=== PATIENT | male | born 1960 | race African-American/Black ===

== ENCOUNTER 2022-05-25 16:22 | Emergency (ER) | payer MEDICAID ==
[~2022-05-25] VITALS: Ht 170.2 cm; Wt 82.0 kg
[2022-05-25 16:25] VITALS: BP 119/78
[2022-05-25] MEDS ORDERED: ACETAMINOPHEN 325MG TABLET PO ONE (16:45)
== END 2022-05-25 16:50 | disposition home or self-care (01) ==
LOC: ER 16:22
DX: M79.10 Myalgia, unspecified site (principal); I10 Essential (primary) hypertension; F03.90 Unspecified dementia, unspecified severity, without behavioral disturbance, psychotic disturbance, mood disturbance, and anxiety
CPT/HCPCS: 99283

== ENCOUNTER 2022-05-25 19:16 | Emergency (ER) | payer MEDICAID ==
[~2022-05-25] VITALS: Ht 167.6 cm; Wt 85.3 kg
[2022-05-25 19:44] VITALS: BP 145/70
== END 2022-05-26 00:15 | disposition left against medical advice (07) ==
LOC: ER 19:16
DX: Z53.21 Procedure and treatment not carried out due to patient leaving prior to being seen by health care provider (principal)

== ENCOUNTER 2022-08-21 09:00 | Inpatient (IN) | payer MEDICAID ==
[~2022-08-21] VITALS: Ht 160 cm; Wt 80.3 kg
[2022-08-21 09:39] LABS: BASOPHILS % 0.7 % (0.0-2.0); EOSINOPHILS % 1.5 % (0.0-5.0); HEMATOCRIT. 42.4 % (42.0-52.0); HEMOGLOBIN. 14.3 g/dL (14.0-18.0); LYMPHOCYTES % 11.4 % (20.0-50.0); MEAN CORPUSCULAR HEMOGLOBIN 31.9 pg (28.0-32.0); MEAN CORPUSCULAR VOLUME 94.2 fL (80.0-94.0); MEAN PLATELET VOLUME 7.7 fl (7.4-10.4); MONOCYTES % 5.6 % (2.0-8.0); NEUTROPHILS % 80.8 % (40.0-76.0); PLATELET 269 x1000/uL (130-400); RED CELL DISTRIBUTION WIDTH 15.5 % (11.6-14.6)
[2022-08-21 09:45] LABS: CHLORIDE 109 mEq/L (98-107)
[2022-08-21 09:55] LABS: BG BASE EXCESS -0.4 mmol/L (-2.0-2.0); BG CARBOXYHEMOGLOBIN 1.1 % (0.5-1.5); BG DEOXYHEMOGLOBIN 3.5 % (0.0-5.0); BG FRACTION INSPIRED OXYGEN 21; BG HCO3 ACT 23.5 mmol/L (22.0-26.0); BG METHEMOGLOBIN 0.3 % (0.0-1.5); BG OXYGEN SATURATION 96.5 % (92.0-98.5); BG OXYHEMOGLOBIN 95.1 % (94.0-97.0); BG PCO2 36.8 mmHg (35.0-45.0); BG PH 7.424 (7.350-7.450); BG PO2 80.9 mmHg (75.0-100.0); BG SAMPLE SITE RIGHT RADIAL; BG VENT MODE ROOM AIR
[2022-08-21] MEDS ORDERED: SODIUM CHLORIDE 0.9% 1,000 ML IV ONE (10:15)
[2022-08-22] VITALS (7 sets, daily range): BP systolic 104–160; BP diastolic 74–89
[2022-08-22] MEDS: LOSARTAN POTASSIUM 50 MG TABLET PO SCH (06:27)
[2022-08-22 08:13] LABS: BASOPHILS % 0.7 % (0.0-2.0); EOSINOPHILS % 1.3 % (0.0-5.0); HEMOGLOBIN. 15.4 g/dL (14.0-18.0); LYMPHOCYTES % 13.1 % (20.0-50.0); MEAN CORPUSCULAR HEMOGLOBIN 32.1 pg (28.0-32.0); MEAN CORPUSCULAR VOLUME 95.7 fL (80.0-94.0); MEAN PLATELET VOLUME 8.3 fl (7.4-10.4); MONOCYTES % 8.8 % (2.0-8.0); NEUTROPHILS % 76.1 % (40.0-76.0); PLATELET 247 x1000/uL (130-400); RED CELL DISTRIBUTION WIDTH 15.6 % (11.6-14.6)
[2022-08-22 08:24] LABS: CHLORIDE 110 mEq/L (98-107)
[2022-08-22] MEDS: THIAMINE HCL 100MG TABLET PO SCH (09:30)
[2022-08-22] MEDS: SODIUM CHLORIDE 0.9% 1,000 ML IV SCH ×2 (09:30→17:12)
[2022-08-22] MEDS ORDERED: PNEUMOCOCCAL 23-VAL P-SAC VAC 0.5 ML IM ONE (11:00)
[2022-08-22] MEDS ORDERED: INFLUENZA VACCINE 05/PF 0.5 ML SYRINGE IM ONE (11:00)
[2022-08-22] MEDS ORDERED: POTASSIUM CHLORIDE 20MEQ TABLET SR PO NR (12:30)
[2022-08-22] MEDS ORDERED: VALPROATE SODIUM 1,000 MG in SODIUM CHLORIDE 0.9% 100 ML IV NR (22:30)
[2022-08-23 00:19] VITALS: BP 141/89
[2022-08-23] MEDS: SODIUM CHLORIDE 0.9% 1,000 ML IV SCH (00:22)
[2022-08-23] MEDS: AMLODIPINE 5MG TABLET PO SCH ×2 (00:22→09:30)
[2022-08-23 04:00] VITALS: BP 147/88
[2022-08-23 09:05] LABS: CHLORIDE 111 mEq/L (98-107)
[2022-08-23 09:08] LABS: BASOPHILS % 0.7 % (0.0-2.0); EOSINOPHILS % 3.2 % (0.0-5.0); HEMATOCRIT. 43.4 % (42.0-52.0); HEMOGLOBIN. 14.8 g/dL (14.0-18.0); LYMPHOCYTES % 13.8 % (20.0-50.0); MEAN CORPUSCULAR HEMOGLOBIN 32.3 pg (28.0-32.0); MEAN CORPUSCULAR VOLUME 94.9 fL (80.0-94.0); MEAN PLATELET VOLUME 8.5 fl (7.4-10.4); MONOCYTES % 8.5 % (2.0-8.0); NEUTROPHILS % 73.8 % (40.0-76.0); PLATELET 278 x1000/uL (130-400); RED BLOOD CELL COUNT 4.57 mill/uL (4.7-6.1); RED CELL DISTRIBUTION WIDTH 15.5 % (11.6-14.6)
[2022-08-23 09:15] LABS: HDL CHOLESTEROL 62 mg/dL (40-59); LDL CHOLESTEROL 80 mg/dL (5-100)
[2022-08-23] MEDS: LOSARTAN POTASSIUM 50 MG TABLET PO SCH (09:30)
[2022-08-23] MEDS: ASPIRIN 81MG TABLET PO SCH (09:30)
[2022-08-23] MEDS: THIAMINE HCL 100MG TABLET PO SCH (09:30)
[2022-08-23] MEDS: DIVALPROEX SODIUM 500MG DR TABLET PO SCH ×2 (09:30→20:52)
[2022-08-23] MEDS: ACETAMINOPHEN 325MG TABLET PO PRN (12:07)
[2022-08-23] MEDS ORDERED: AMLO5TAB88 PO (15:35)
[2022-08-23] MEDS ORDERED: DIVA-18 PO (15:35)
[2022-08-23] MEDS ORDERED: ASPI-1160 PO (15:35)
[2022-08-23] MEDS ORDERED: THIA100T72 PO (15:35)
[2022-08-23 16:00] VITALS: BP 151/82
[2022-08-23 20:00] VITALS: BP 128/80
[2022-08-24] VITALS: BP 121/71
[2022-08-24 04:00] VITALS: BP 125/73
[2022-08-24 08:00] VITALS: BP 133/75
[2022-08-24] MEDS: AMLODIPINE 5MG TABLET PO SCH (10:02)
[2022-08-24] MEDS: DIVALPROEX SODIUM 500MG DR TABLET PO SCH ×2 (10:02→20:16)
[2022-08-24] MEDS: THIAMINE HCL 100MG TABLET PO SCH (10:02)
[2022-08-24] MEDS: LOSARTAN POTASSIUM 50 MG TABLET PO SCH (10:02)
[2022-08-24] MEDS: ASPIRIN 81MG TABLET PO SCH (10:02)
[2022-08-24 12:00] VITALS: BP 117/69
[2022-08-24] MEDS: ACETAMINOPHEN 325MG TABLET PO PRN (12:20)
[2022-08-24] MEDS: SODIUM CHLORIDE 0.9% 1,000 ML IV SCH ×3 (15:59→23:44)
[2022-08-24 16:00] VITALS: BP 149/49
[2022-08-24 20:00] VITALS: BP 128/77
[2022-08-25] VITALS (7 sets, daily range): BP systolic 125–157; BP diastolic 77–91
[2022-08-25] MEDS: THIAMINE HCL 100MG TABLET PO SCH (08:27)
[2022-08-25] MEDS: LOSARTAN POTASSIUM 50 MG TABLET PO SCH (08:27)
[2022-08-25] MEDS: ASPIRIN 81MG TABLET PO SCH (08:27)
[2022-08-25] MEDS: AMLODIPINE 5MG TABLET PO SCH (08:27)
[2022-08-25] MEDS: DIVALPROEX SODIUM 500MG DR TABLET PO SCH ×2 (08:27→20:10)
[2022-08-25] MEDS: SODIUM CHLORIDE 0.9% 1,000 ML IV SCH ×2 (08:29→17:20)
[2022-08-25] MEDS: ACETAMINOPHEN 325MG TABLET PO PRN ×2 (08:39→20:13)
[2022-08-26] VITALS: BP 123/58
[2022-08-26] MEDS: SODIUM CHLORIDE 0.9% 1,000 ML IV SCH
[2022-08-26 04:00] VITALS: BP 115/63
[2022-08-26 08:00] VITALS: BP 126/83
[2022-08-26] MEDS: THIAMINE HCL 100MG TABLET PO SCH (09:18)
[2022-08-26] MEDS: ASPIRIN 81MG TABLET PO SCH (09:18)
[2022-08-26] MEDS: LOSARTAN POTASSIUM 50 MG TABLET PO SCH (09:18)
[2022-08-26] MEDS: AMLODIPINE 5MG TABLET PO SCH (09:18)
[2022-08-26] MEDS: DIVALPROEX SODIUM 500MG DR TABLET PO SCH (09:18)
[2022-08-26] MEDS: ACETAMINOPHEN 325MG TABLET PO PRN (09:52)
[2022-08-26 12:00] VITALS: BP 125/78
[2022-08-26 16:00] VITALS: BP 139/76
[2022-08-26 16:38] VITALS: BP 125/58
== END 2022-08-26 17:35 | disposition home or self-care (01) | DRG 48 ==
LOC: ER 09:00 → 7EST 11:43 → EDBEDREQTM 11:45 → EDBEDREQ 11:45 → ENRESERV 22:35
PROVIDERS: ADMIT Internal Medicine; ATTEND Internal Medicine
PROC: 4A00X4Z Measurement of Central Nervous Electrical Activity, External Approach (ICD-10-PCS; principal; 2022-08-23)
DX: G90.8 Other disorders of autonomic nervous system (principal); G93.41 Metabolic encephalopathy; E66.01 Morbid (severe) obesity due to excess calories; E87.6 Hypokalemia; G44.89 Other headache syndrome; G40.909 Epilepsy, unspecified, not intractable, without status epilepticus; I10 Essential (primary) hypertension; F10.20 Alcohol dependence, uncomplicated; Z86.73 Personal history of transient ischemic attack (TIA), and cerebral infarction without residual deficits; Z68.31 Body mass index [BMI] 31.0-31.9, adult
CPT/HCPCS: 36415; 36600; 70551; 71045; 80048; 80053; 80061; 82375; 82805; 83880; 84484; 85025; 90686; 90732; 93306; 97162; 99285; C1893; J3490; J7030; J7050